=== PATIENT | male | born 1960 | race Caucasian/White ===

== ENCOUNTER → 2021-08-21 | Day surgery (SDC) | payer BC ==
[~2021-08-21] MED LIST: AMLODIPINE BESYL5 MG PO; BENAZEPRIL HCL10 MG PO; EPINEPHRINE HCL 1:1000 1ML 1 MG/ML AMP ONE; FENTANYL CITRATE/PF 100MCG/2 ML INJ ONE; HYOSCYAMINE SULFATE 0.5 MG/ML INJ ONE; LEVOTHYROXINE112 MCG PO; MIDAZOLAM HCL 2 MG/2 ML VIAL ONE; PRAVASTATIN SOD80 MG PO; PROPOFOL IV EMULSION 10 MG/ML 20 ML VIAL ONE
[2021-08-21 11:35] VITALS: BP 128/101
== END | disposition home or self-care (01) ==
LOC: OR 09:02
PROVIDERS: ATTEND Internal Medicine Gastroenterology
DX: Z12.11 Encounter for screening for malignant neoplasm of colon (principal); K63.5 Polyp of colon; K92.1 Melena; K57.30 Diverticulosis of large intestine without perforation or abscess without bleeding; K64.8 Other hemorrhoids; I10 Essential (primary) hypertension; E03.9 Hypothyroidism, unspecified; E78.00 Pure hypercholesterolemia, unspecified; Z01.810 Encounter for preprocedural cardiovascular examination; Z01.812 Encounter for preprocedural laboratory examination; Z20.822 Contact with and (suspected) exposure to COVID-19; Z68.33 Body mass index [BMI] 33.0-33.9, adult
CPT/HCPCS: 45385; 93005; J0171; J1980; J2250; J2704; J3010; U0002; 45378